=== PATIENT | female | born 1950 | race African-American/Black ===

== ENCOUNTER 2018-10-13 20:13 | Inpatient (IN) | payer MEDICARE, OTHER ==
[~2018-10-13] VITALS: Ht 160 cm; Wt 122.7 kg
[~2018-10-13 20:13] MED LIST: DICL100G37 TOP; DOCU100T PO; FER325 PO; FLUC200T PO; LISI1TAB27 PO; METO-448 PO; Multivitamins PO; OMEP20CA17 PO; OXYC-481 PO; PRAV10TA43 PO; ZNO30OI TOP
[2018-10-13 21:10] VITALS: BP 100/51; PULSE 102; RESP 20
[2018-10-13 21:30] VITALS: Ht 160 cm; Wt 122.7 kg
[2018-10-13] MEDS ORDERED: traMADol 50 MG TAB PO PRN (22:30)
[2018-10-13] MEDS ORDERED: LORAZEPAM 0.5 MG TAB PO PRN (22:30)
[2018-10-13] MEDS ORDERED: HYDROCODONE/APAP (5/325) TAB PO PRN (22:30)
[2018-10-13] MEDS: METOPROLOL 25 MG TAB PO SCH (22:30)
[2018-10-13] MEDS ORDERED: FUROSEMIDE 20 MG TAB PO PRN (22:30)
[2018-10-13] MEDS ORDERED: ONDANSETRON (ODT) 4 MG TAB ODT PRN (22:30)
[2018-10-13] MEDS ORDERED: PENDING SANTYL ORDER FOR WOUND CARE XX PRN (22:30)
[2018-10-13] MEDS ORDERED: ZOLPIDEM 5 MG TAB PO PRN (22:30)
[2018-10-13] MEDS: oxyCODONE 5 MG TAB PO PRN (23:05)
[2018-10-14] MEDS ORDERED: ACETAMINOPHEN 325 MG TAB PO PRN (02:00)
[2018-10-14] MEDS ORDERED: BISACODYL 10 MG SUPP PR PRN (02:00)
[2018-10-14] MEDS ORDERED: MAGNESIUM HYDROXIDE 30ML CUP PO PRN (02:00)
[2018-10-14] MEDS ORDERED: LACTULOSE 30ML CUP PO PRN (02:00)
[2018-10-14 02:33] VITALS: BP 96/54; PULSE 103; RESP 20
[2018-10-14] MEDS: oxyCODONE 5 MG TAB PO PRN ×4 (04:58→21:57)
[2018-10-14] MEDS: PANTOPRAZOLE (EC) 40 MG TAB PO SCH (06:22)
[2018-10-14 07:32] VITALS: BP 86/50; PULSE 100; RESP 16
[2018-10-14] MEDS: METOPROLOL 25 MG TAB PO SCH ×2 (09:00→21:00)
[2018-10-14] MEDS: DOCUSATE SODIUM 100 MG CAP PO SCH ×2 (09:00→21:00)
[2018-10-14] MEDS: ENOXAPARIN 40 MG/0.4 ML SYG SC SCH (09:04)
[2018-10-14] MEDS: FERROUS SULFATE (EC) 325 MG TAB PO SCH ×2 (09:05→21:00)
[2018-10-14] MEDS: BALSAM PERU/CASTOR OIL 60 GM TUBE TOP SCH ×2 (09:05→21:00)
[2018-10-14] MEDS: ZINC OXIDE 20% 30 GM OINT TOP SCH ×2 (09:05→21:00)
[2018-10-14] MEDS: FLUCONAZOLE 200 MG TAB PO SCH (09:07)
[2018-10-14] MEDS: MULTIVITAMINS 30 ML CUP PO SCH (09:26)
[2018-10-14] MEDS: POTASSIUM CHLORIDE (SR) 20 MEQ TAB PO STA ×2 (11:31→11:36)
[2018-10-14] MEDS: POTASSIUM CHLORIDE 20 MEQ POWDER FOR ORAL SOLN PO SCH (12:38)
[2018-10-14 14:08] VITALS: BP 103/50; PULSE 99; RESP 16
[2018-10-14 20:00] VITALS: BP 107/56; PULSE 98; RESP 18
[2018-10-14 20:30] VITALS: BP 102/58; PULSE 91; RESP 18
[2018-10-14] MEDS ORDERED: ATORVASTATIN 10 MG TAB PO SCH (21:00)
[2018-10-14] MEDS ORDERED: SENNA TAB PO SCH (21:00)
[2018-10-15] MEDS: oxyCODONE 5 MG TAB PO PRN ×2 (01:57→07:46)
[2018-10-15 02:00] VITALS: BP 105/55; PULSE 95; RESP 18
[2018-10-15] MEDS: PANTOPRAZOLE (EC) 40 MG TAB PO SCH (05:38)
[2018-10-15] MEDS: POTASSIUM CHLORIDE 20 MEQ POWDER FOR ORAL SOLN PO SCH (08:45)
[2018-10-15] MEDS: FLUCONAZOLE 200 MG TAB PO SCH (08:45)
[2018-10-15] MEDS: METOPROLOL 25 MG TAB PO SCH (09:00)
[2018-10-15] MEDS: ENOXAPARIN 40 MG/0.4 ML SYG SC SCH (09:00)
[2018-10-15] MEDS ORDERED: ZINC SULFATE 220 MG CAP PO SCH (09:00)
[2018-10-15] MEDS: ZINC OXIDE 20% 30 GM OINT TOP SCH (09:00)
[2018-10-15] MEDS: DOCUSATE SODIUM 100 MG CAP PO SCH (09:00)
[2018-10-15] MEDS ORDERED: FOLIC ACID 1 MG TAB PO SCH (09:00)
[2018-10-15] MEDS: BALSAM PERU/CASTOR OIL 60 GM TUBE TOP SCH (09:00)
[2018-10-15] MEDS: FERROUS SULFATE (EC) 325 MG TAB PO SCH (09:00)
[2018-10-15] MEDS ORDERED: ASCORBIC ACID 500 MG TAB PO SCH (09:00)
[2018-10-15] MEDS: MULTIVITAMINS 30 ML CUP PO SCH (09:00)
== END 2018-10-15 10:30 | disposition home or self-care (01) | DRG 392 ==
LOC: VRC 21:17
PROVIDERS: ADMIT Physical Medicine & Rehabilitation; ATTEND Internal Medicine
DX: K91.2 Postsurgical malabsorption, not elsewhere classified (principal); Z68.42 Body mass index [BMI] 45.0-49.9, adult; B37.49 Other urogenital candidiasis; G72.9 Myopathy, unspecified; R53.81 Other malaise; E66.01 Morbid (severe) obesity due to excess calories; M19.90 Unspecified osteoarthritis, unspecified site; M54.15 Radiculopathy, thoracolumbar region; R60.0 Localized edema; D64.9 Anemia, unspecified; M19.91 Primary osteoarthritis, unspecified site; R19.7 Diarrhea, unspecified; E78.5 Hyperlipidemia, unspecified; L89.899 Pressure ulcer of other site, unspecified stage; F41.9 Anxiety disorder, unspecified; Z74.09 Other reduced mobility; I10 Essential (primary) hypertension; L89.152 Pressure ulcer of sacral region, stage 2; E88.09 Other disorders of plasma-protein metabolism, not elsewhere classified
CPT/HCPCS: 80053; 83540; 85025; 87081; 97162; 97167; J1650